=== PATIENT | female | born 1975 ===

== ENCOUNTER 2018-04-08 19:59 | Observation (INO) | payer SELFPAY ==
[2018-04-08 21:03] LABS: BASO % 0.4 % (0.0-2.0); EOS % 0.2 % (0.0-4.0); HEMOGLOBIN 9.6 g/dL (12.0-16.0); LYMPH # 1.2 K/uL (1.0-4.3); LYMPH % 12.7 % (20.0-40.0); MEAN CELL VOLUME 94.6 fl (81.0-99.0); MEAN CORPUSCULAR HEMOGLOBIN 31.8 pg (27.0-31.0); MEAN CORPUSCULAR HGB CONC 33.7 g/dL (33.0-37.0); MEAN PLATELET VOLUME 8.5 fl (7.2-11.7); MONO # 0.4 K/uL (0.0-0.8); MONO % 4.2 % (0.0-10.0); NEUT # 7.9 K/uL (1.8-7.0); NEUT % 82.5 % (50.0-75.0); RBC 3.03 Mil/uL (3.80-5.20); RED CELL DISTRIBUTION WIDTH 15.5 % (11.5-14.5); WHITE BLOOD COUNT 9.6 K/uL (4.8-10.8)
[2018-04-08 21:13] LABS: ALB/GLOB RATIO 1.1 (1.0-2.1); ALBUMIN 2.5 g/dL (3.5-5.0); ALT/SGPT 24 U/L (9-52); AST/SGOT 20 U/L (14-36); BLOOD UREA NITROGEN 6 mg/dl (7-17); CALCIUM 6.8 mg/dL (8.4-10.2); GFR AFRICAN-AMERICAN > 60; GFR NON-AFRICAN AMERICAN > 60
--- NOTE | 2018-04-08 21:46 | ED PDOC ---
HPI: Female Pain Time Seen by Provider: 04/08/18 20:03 Chief Complaint (Nursing): Female Genitourinary Chief Complaint (Provider): vaginal bleeding Additional Complaint(s): Sent from [place] ER for evaluation by EDUCATION MANAGER for severe vaginal bleeding History obtained from patient and from report given earlier by Dr Mcdonald Sudden onset bleeding and cramping at 5pm today. In [place], pt had near syncopal episode and was hypotensive. Vaginal bleeding too excessive for adequate pelvic exam. Aggressive IVF given and unmatched blood transfused. Accepted by Dr Marin OB in [place] for transfer for further evaluation and management. Initial urine hcg negative in ER. However serum betahcg later resulted positive 42 Pt reports that she had not had period since September and assumed that she was going through menopause. Admits that she intermittently felt breast swelling and tenderness and occasional nausea, but still did not think she was . Past Medical History Reviewed: Historical Data, Nursing Documentation, Vital Signs Vital Signs: Last Vital Signs Temp 98.9 F 04/08/18 20:40 Pulse 71 04/08/18 20:25 Resp 17 04/08/18 20:25 BP 108/62 04/08/18 20:25 Pulse Ox 99 04/08/18 20:25 - Medical History PMH: No Chronic Diseases - Surgical History Surgical History: (x2) - Family History Family History: States: Unknown Family Hx - Social History Current smoker - smoking cessation education provided: No - Home Medications Home Medications: Ambulatory Orders Medication Instructions Recorded Ferrous Sulfate [Feosol] 325 mg PO BID 30 Days #60 tab 04/09/18 - Allergies Allergies/Adverse Reactions: Allergies Allergy/AdvReac Type Severity Reaction Status Date / Time No Known Allergies Allergy Verified 04/08/18 20:00 Review of Systems ROS Statement: Except As Marked, All Systems Reviewed And Found Negative Constitutional: Negative for: Fever, Chills Physical Exam - Reviewed Nursing Documentation Reviewed: Yes Vital Signs Reviewed: Yes - Physical Exam Appears: Positive for: Uncomfortable, In Acute Distress Head Exam: Positive for: ATRAUMATIC, NORMOCEPHALIC Skin: Positive for: Pallor Eye Exam: Positive for: EOMI, PERRL ENT: Negative for: Pharyngeal Erythema, Tonsillar Exudate Neck: Positive for: Painless ROM, Supple Cardiovascular/Chest: Positive for: Regular Rate, Rhythm, Chest Non Tender. Negative for: Murmur Respiratory: Positive for: Normal Breath Sounds. Negative for: Wheezing Gastrointestinal/Abdominal: Positive for: Soft, Tenderness (suprapubic) Pelvic Exam: Positive for: Blood (copious blood and clots) Extremity: Positive for: Normal ROM. Negative for: Deformity Lymphatic: Negative for: Adenopathy Neurologic/Psych: Positive for: Alert. Negative for: Motor/Sensory Deficits - Laboratory Results Result Diagrams: 04/09/18 05:30 04/08/18 20:53 - ECG O2 Sat by Pulse Oximetry: 99 - Progress ED Course And Treament: On arrival dw Dr Marin who advised US to further determine status of BP in low 100s and pt with normal rate. However, actively heavily bleeding. Will order additional 2u prbcs crossmatched. 10p Pt with decrease in hgb from 11.6 to 9.6 and elevated lactate and low bicarb. Examined collected tissue from vaginal canal: appears to be all clotted blood. EXAM: US , first trimester, OB, transvaginal CLINICAL HISTORY: 42 years old, female; Pain; complicated by abdominal or pelvic pain; Lower; First trimester; Gestational age or lmp: 10/11/2017; ; Patient HX: Pt hasn't had a menstrual cycle since september. States premenopause. (+ preg. Test); Additional info: Heavy vag bleeding betahcg 42 TECHNIQUE: Real-time transvaginal obstetrical ultrasound of the maternal pelvis and a first trimester with image documentation. Transvaginal imaging was used for better evaluation of the fetus and adnexa. COMPARISON: No relevant prior studies available. FINDINGS: Limitations: Technically limited. Gestation: No intrauterine is visualized. Uterus/cervix: Uterus measures 15.8 x 5.9 x 6.8 CM. Endometrial stripe measures 1.1 CM in thickness. Complex structure and fluid seen in the lobar or uterine segment, cervix, and vaginal canal which may represent retained products of conception. No myometrial mass. Ovaries: Not visualized. Free fluid: No free fluid. Bladder: Bladder is incompletely distended. Ghosh balloon in bladder. IMPRESSION: 1. Complex structure and fluid seen in the lobar or uterine segment, cervix, and vaginal canal which may represent retained products of conception. 2. Remainder of findings as above. Thank you for allowing us to participate in the care of your patient. Dictated and Authenticated by: Froylan Palma MD 04/08/2018 10:54 PM Eastern Time ([place] & [place]) Evaluated by Dr Marin in ER. Advised observation and to hold next transfusion pending repeat CBC in AM. Disposition - Clinical Impression Clinical Impression: Complete miscarriage, Excessive vaginal bleeding Counseled Patient/Family Regarding: Studies Performed, Diagnosis - Disposition Disposition Time: 23:00 Condition: FAIR - Pt Status Changed To: Hospital Disposition Of: Observation - POA Present On Arrival: None
[2018-04-08] MEDS: Dextrose 5%/Lactated Ringer's 1,000 ML IV SCH (22:21)
--- NOTE | 2018-04-08 23:22 | CP.PCM.HP ---
History of Present Illness - History of Present Illness History of Present Illness: 42yo female transferred from [facility] due to heavy vaginal bleeding. Pt's BhCG quant 42. Pt reports LMP in 09/2017. Pt s/p 1 Unit PRBC with VSS. Ultrasound reported empty uterus with complex collection at cervix/vagina. I discussed all findings with patient. pt without complaints at this time. Present on Admission - Present on Admission Any Indicators Present on Admission: No History of DVT/PE: No History of Uncontrolled Diabetes: No Urinary Catheter: No Decubitus Ulcer Present: No Past Patient History - Past Social History Smoking Status: Never Smoked - PSYCHIATRIC Hx Psychophysiologic Disorder: No Hx Substance Use: No - SURGICAL HISTORY Hx Section: Yes (x2) - ANESTHESIA Hx Anesthesia: No Meds Allergies/Adverse Reactions: Allergies Allergy/AdvReac Type Severity Reaction Status Date / Time No Known Allergies Allergy Verified 04/08/18 20:00 Physical Exam - Constitutional Appears: Well, No Acute Distress - Head Exam Head Exam: NORMAL INSPECTION - Eye Exam Eye Exam: Normal appearance, PERRL - ENT Exam ENT Exam: Mucous Membranes Moist - GI/Abdominal Exam GI & Abdominal Exam: Soft. absent: Distended, Tenderness - Exam Additional comments: +POC seen in posterior vagina at cervix. POC removed under direct visualization. Clots and blood removed from vagina. After removal, cervical os found to be hemostatic. Pt tolerated well. Results - Vital Signs Recent Vital Signs: Last Vital Signs Temp 98.6 F 04/08/18 21:20 Pulse 77 04/08/18 22:21 Resp 20 04/08/18 22:21 BP 109/47 L 04/08/18 22:21 Pulse Ox 99 04/08/18 23:03 - Labs Result Diagrams: 04/08/18 20:53 04/08/18 20:53 Labs: Laboratory Results - last 24 hr 04/08/18 04/08/18 04/08/18 20:53 20:53 20:53 WBC 9.6 RBC 3.03 L Hgb 9.6 L Hct 28.6 L MCV 94.6 MCH 31.8 H MCHC 33.7 RDW 15.5 H Plt Count 166 MPV 8.5 Neut % (Auto) 82.5 H Lymph % (Auto) 12.7 L [place] % (Auto) 4.2 Eos % (Auto) 0.2 Baso % (Auto) 0.4 Neut # (Auto) 7.9 H Lymph # (Auto) 1.2 [place] # (Auto) 0.4 Eos # (Auto) 0.0 Baso # (Auto) 0.0 Sodium 138 Potassium 4.2 Chloride 113 H Carbon Dioxide 17 L Anion Gap 12 BUN 6 L Creatinine 0.5 L Est GFR ( Amer) > 60 Est GFR (Non-Af Amer) > 60 Random Glucose 94 Lactic Acid 2.4 H Calcium 6.8 L Phosphorus 2.2 L Magnesium 1.6 Total Bilirubin 0.4 AST 20 ALT 24 Alkaline Phosphatase 37 L D Total Protein 4.8 L Albumin 2.5 L D Globulin 2.2 Albumin/Globulin Ratio 1.1 Blood Type Antibody Screen Crossmatch BBK History Checked 04/08/18 21:05 WBC RBC Hgb Hct MCV MCH MCHC RDW Plt Count MPV Neut % (Auto) Lymph % (Auto) [place] % (Auto) Eos % (Auto) Baso % (Auto) Neut # (Auto) Lymph # (Auto) [place] # (Auto) Eos # (Auto) Baso # (Auto) Sodium Potassium Chloride Carbon Dioxide Anion Gap BUN Creatinine Est GFR ( Amer) Est GFR (Non-Af Amer) Random Glucose Lactic Acid Calcium Phosphorus Magnesium Total Bilirubin AST ALT Alkaline Phosphatase Total Protein Albumin Globulin Albumin/Globulin Ratio Blood Type O POSITIVE Antibody Screen Negative Crossmatch See Detail BBK History Checked Patient has bt - Imaging and Cardiology US - abdomen Status: Report reviewed by me Assessment & Plan - Assessment and Plan (Free Text) Assessment: Complete s/p acute hemorrhage episode; Pt stable s/p 1 unit PRBC and no bleeding at this time. Plan: Admit patient for observation IVF hydration Plan to recheck CBC in 6-8 hours Discussed all findings and plan with patient and all patient questions answered. - Date & Time Date: 04/08/18 Time: 23:26
[2018-04-08] MEDS ORDERED: Oxycodone/Acetaminophen 5/325 mg Tab PO PRN (23:26)
[2018-04-09] MEDS: Lactated Ringer's 1,000 ML IV SCH ×2 (00:40→08:24)
[2018-04-09 06:59] LABS: HEMOGLOBIN 8.4 g/dL (12.0-16.0); MEAN CELL VOLUME 91.7 fl (81.0-99.0); MEAN CORPUSCULAR HGB CONC 33.9 g/dL (33.0-37.0); RBC 2.71 Mil/uL (3.80-5.20); RED CELL DISTRIBUTION WIDTH 15.1 % (11.5-14.5); WHITE BLOOD COUNT 6.4 K/uL (4.8-10.8)
[2018-04-09] MEDS: Dextrose 5%/Lactated Ringer's 1,000 ML IV SCH (08:49)
--- NOTE | 2018-04-09 09:31 | CP.PCM.DIS ---
<Abbe Koo - Last Filed: 04/09/18 09:35> Provider - Provider Date of Admission: 04/08/18 23:15 Attending physician: Evans Marin MD Time Spent in preparation of Discharge (in minutes): 30 Diagnosis - Discharge Diagnosis (1) Complete Status: Acute (2) Complete miscarriage Status: Acute Hospital Course - Lab Results Lab Results: Most Recent Lab Values WBC 6.4 K/uL (4.8-10.8) 04/09/18 05:30 RBC 2.71 Mil/uL (3.80-5.20) L 04/09/18 05:30 Hgb 8.4 g/dL (12.0-16.0) L 04/09/18 05:30 Hct 24.8 % (34.0-47.0) L 04/09/18 05:30 MCV 91.7 fl (81.0-99.0) D 04/09/18 05:30 MCH 31.0 pg (27.0-31.0) 04/09/18 05:30 MCHC 33.9 g/dL (33.0-37.0) 04/09/18 05:30 RDW 15.1 % (11.5-14.5) H 04/09/18 05:30 Plt Count 167 K/uL (130-400) 04/09/18 05:30 MPV 8.5 fl (7.2-11.7) 04/08/18 20:53 Neut % (Auto) 82.5 % (50.0-75.0) H 04/08/18 20:53 Lymph % (Auto) 12.7 % (20.0-40.0) L 04/08/18 20:53 [place] % (Auto) 4.2 % (0.0-10.0) 04/08/18 20:53 Eos % (Auto) 0.2 % (0.0-4.0) 04/08/18 20:53 Baso % (Auto) 0.4 % (0.0-2.0) 04/08/18 20:53 Neut # (Auto) 7.9 K/uL (1.8-7.0) H 04/08/18 20:53 Lymph # (Auto) 1.2 K/uL (1.0-4.3) 04/08/18 20:53 [place] # (Auto) 0.4 K/uL (0.0-0.8) 04/08/18 20:53 Eos # (Auto) 0.0 K/uL (0.0-0.7) 04/08/18 20:53 Baso # (Auto) 0.0 K/uL (0.0-0.2) 04/08/18 20:53 Sodium 138 mmol/l (132-148) 04/08/18 20:53 Potassium 4.2 MMOL/L (3.6-5.0) 04/08/18 20:53 Chloride 113 mmol/L (98-107) H 04/08/18 20:53 Carbon Dioxide 17 mmol/L (22-30) L 04/08/18 20:53 Anion Gap 12 (10-20) 04/08/18 20:53 BUN 6 mg/dl (7-17) L 04/08/18 20:53 Creatinine 0.5 mg/dl (0.7-1.2) L 04/08/18 20:53 Est GFR ( Amer) > 60 04/08/18 20:53 Est GFR (Non-Af Amer) > 60 04/08/18 20:53 Random Glucose 94 mg/dL (65-105) 04/08/18 20:53 Lactic Acid 2.4 MMOL/L (0.7-2.1) H 04/08/18 20:53 Calcium 6.8 mg/dL (8.4-10.2) L 04/08/18 20:53 Phosphorus 2.2 mg/dl (2.5-4.5) L 04/08/18 20:53 Magnesium 1.6 MG/DL (1.6-2.3) 04/08/18 20:53 Total Bilirubin 0.4 mg/dl (0.2-1.3) 04/08/18 20:53 AST 20 U/L (14-36) 04/08/18 20:53 ALT 24 U/L (9-52) 04/08/18 20:53 Alkaline Phosphatase 37 U/L (38-126) L D 04/08/18 20:53 Total Protein 4.8 G/DL (6.3-8.2) L 04/08/18 20:53 Albumin 2.5 g/dL (3.5-5.0) L D 04/08/18 20:53 Globulin 2.2 gm/dL (2.2-3.9) 04/08/18 20:53 Albumin/Globulin Ratio 1.1 (1.0-2.1) 04/08/18 20:53 Blood Type O POSITIVE 04/08/18 21:05 Antibody Screen Negative 04/08/18 21:05 Crossmatch See Detail 04/08/18 21:05 BBK History Checked Patient has bt 04/08/18 21:05 - Hospital Course Hospital Course: 42 yo F presented with complete s/p acute episode of hemorrhage with 1 unit PRBC administered. Pt reports vaginal bleed has resolved overnight. Denies weakness, dizziness, significant abdominal pain, CP/SOB/N/V. Tolerating PO diet. Ambulating Vitals stable overnight. Afebrile ER precautions reviewed with patient; she and partner verbalized understanding Pt prescribed FEOSOL BID for anemia case dw Dr. Yoselin Koo MD PGY2 Discharge Exam - Head Exam Head Exam: NORMAL INSPECTION - Eye Exam Eye Exam: EOMI - ENT Exam ENT Exam: Mucous Membranes Moist - Neck Exam Neck exam: Full Rom - Respiratory Exam Respiratory Exam: Clear to PA & Lateral, NORMAL BREATHING PATTERN, UNREMARKABLE. absent: Wheezes - Cardiovascular Exam Cardiovascular Exam: REGULAR RHYTHM, +S1, +S2 - GI/Abdominal Exam GI & Abdominal Exam: Normal Bowel Sounds, Soft. absent: Guarding - Neurological Exam Neurological exam: Alert, CN II-XII Intact, Oriented x3 - Psychiatric Exam Psychiatric exam: Normal Affect, Normal Mood - Skin Skin Exam: Intact, Normal Color, Warm Discharge Plan - Discharge Medications Prescriptions: Ferrous Sulfate [Feosol] 325 mg PO BID 30 Days #60 tab - Follow Up Plan Condition: FAIR Disposition: HOME/ ROUTINE Patient education suggested?: Yes Instructions: Miscarriage, Dealing With Miscarriage, Miscarriage (DC) Additional Instructions: Please follow up with [facility] in 4-7 days. [facility] clinic If dizzy, weakness, headache, fever, large amount of vaginal bleed go to ER. For the next 2 weeks, no heavy lifting or nothing inside vagina. Case dw Dr. Yoselin Koo MD PGY2 <Robby Wyatt - Last Filed: 04/10/18 10:45> Provider - Provider Date of Admission: 04/08/18 23:15 Attending physician: Evans Marin MD Hospital Course - Lab Results Lab Results: Most Recent Lab Values WBC 6.4 K/uL (4.8-10.8) 04/09/18 05:30 RBC 2.71 Mil/uL (3.80-5.20) L 04/09/18 05:30 Hgb 8.4 g/dL (12.0-16.0) L 04/09/18 05:30 Hct 24.8 % (34.0-47.0) L 04/09/18 05:30 MCV 91.7 fl (81.0-99.0) D 04/09/18 05:30 MCH 31.0 pg (27.0-31.0) 04/09/18 05:30 MCHC 33.9 g/dL (33.0-37.0) 04/09/18 05:30 RDW 15.1 % (11.5-14.5) H 04/09/18 05:30 Plt Count 167 K/uL (130-400) 04/09/18 05:30 MPV 8.5 fl (7.2-11.7) 04/08/18 20:53 Neut % (Auto) 82.5 % (50.0-75.0) H 04/08/18 20:53 Lymph % (Auto) 12.7 % (20.0-40.0) L 04/08/18 20:53 [place] % (Auto) 4.2 % (0.0-10.0) 04/08/18 20:53 Eos % (Auto) 0.2 % (0.0-4.0) 04/08/18 20:53 Baso % (Auto) 0.4 % (0.0-2.0) 04/08/18 20:53 Neut # (Auto) 7.9 K/uL (1.8-7.0) H 04/08/18 20:53 Lymph # (Auto) 1.2 K/uL (1.0-4.3) 04/08/18 20:53 [place] # (Auto) 0.4 K/uL (0.0-0.8) 04/08/18 20:53 Eos # (Auto) 0.0 K/uL (0.0-0.7) 04/08/18 20:53 Baso # (Auto) 0.0 K/uL (0.0-0.2) 04/08/18 20:53 Sodium 138 mmol/l (132-148) 04/08/18 20:53 Potassium 4.2 MMOL/L (3.6-5.0) 04/08/18 20:53 Chloride 113 mmol/L (98-107) H 04/08/18 20:53 Carbon Dioxide 17 mmol/L (22-30) L 04/08/18 20:53 Anion Gap 12 (10-20) 04/08/18 20:53 BUN 6 mg/dl (7-17) L 04/08/18 20:53 Creatinine 0.5 mg/dl (0.7-1.2) L 04/08/18 20:53 Est GFR ( Amer) > 60 04/08/18 20:53 Est GFR (Non-Af Amer) > 60 04/08/18 20:53 Random Glucose 94 mg/dL (65-105) 04/08/18 20:53 Lactic Acid 2.4 MMOL/L (0.7-2.1) H 04/08/18 20:53 Calcium 6.8 mg/dL (8.4-10.2) L 04/08/18 20:53 Phosphorus 2.2 mg/dl (2.5-4.5) L 04/08/18 20:53 Magnesium 1.6 MG/DL (1.6-2.3) 04/08/18 20:53 Total Bilirubin 0.4 mg/dl (0.2-1.3) 04/08/18 20:53 AST 20 U/L (14-36) 04/08/18 20:53 ALT 24 U/L (9-52) 04/08/18 20:53 Alkaline Phosphatase 37 U/L (38-126) L D 04/08/18 20:53 Total Protein 4.8 G/DL (6.3-8.2) L 04/08/18 20:53 Albumin 2.5 g/dL (3.5-5.0) L D 04/08/18 20:53 Globulin 2.2 gm/dL (2.2-3.9) 04/08/18 20:53 Albumin/Globulin Ratio 1.1 (1.0-2.1) 04/08/18 20:53 Blood Type O POSITIVE 04/08/18 21:05 Antibody Screen Negative 04/08/18 21:05 Crossmatch See Detail 04/08/18 21:05 BBK History Checked Patient has bt 04/08/18 21:05 - Hospital Course Hospital Course: OB Hospitalist note. Care rev'd with Dr Marin. She is stable to go home. Agree with PGY2 note ISABELLA
[2018-04-09 11:58] VITALS: BP 94/60; PULSE 70; RESP 18; TEMP 98.4
--- NOTE | 2018-04-09 15:32 | US ---
Date of service: 04/08/2018 PROCEDURE: Obstetrical ultrasound examination HISTORY: heavy vag bleeding betahcg 42 COMPARISON: Not available TECHNIQUE: Transabdominal and transvaginal FINDINGS: There is a complex structure in the cervix/vagina which may likely represents products of conception. What is likely a pole is seen surrounded by complex fluid. The uterus measures 15.8 x 6.8 x 5.9 cm. There is no uterine mass. The endometrium measures 11 mm in width. There is no endometrial fluid. The cervical length could not be determined accurately. Neither ovary was visualized. A Ghosh catheter is seen within the urinary bladder. IMPRESSION: Likely products of conception seen within the cervix/ vagina. Consistent with spontaneous progress. The preliminary findings for this examination were reported by [facility] at 10:53 p.m. on 04/08/2018. There is concurrence of this report with the preliminary findings.
[2018-04-09 16:42] VITALS: O2SAT 99
== END 2018-04-09 14:25 | disposition home or self-care (01) ==
LOC: H.ER 19:59 → H.ERHOLD 23:15 → H.MEDSURG1 04-09 02:37
PROVIDERS: ADMIT Obstetrics & Gynecology; ATTEND Obstetrics & Gynecology
DX: O03.9 Complete or unspecified spontaneous abortion without complication (principal); D64.9 Anemia, unspecified; Z98.891 History of uterine scar from previous surgery
CPT/HCPCS: 36415; 76815; 76817; 80053; 83605; 83735; 84100; 85025; 85027; 86850; 86900; 86920; 88305; 99285; G0378; J7120